=== PATIENT | female | born 1980 | race Caucasian/White ===

== ENCOUNTER → 2017-11-18 | Outpatient (CLI) | payer BC ==
--- NOTE | 2017-11-21 09:20 | MM ---
Reason for exam: clinical finding. Last mammogram was performed 3 years and 9 months ago. History: Took hormonal contraceptives for 11 years. Physical Findings: Nurse did not find any significant physical abnormalities on exam. MG 3D Diag Mammo W/Cad LT Spot compression CC, spot compression MLO, and LM view(s) were taken of the left breast. Prior study comparison: February 26, 2014, right breast MG diagnostic mammo RT w CAD. The breast tissue is heterogeneously dense. This may lower the sensitivity of mammography. There is an upper outer quadrant middle depth focal asymmetry without sonographic correlation on spot compression views, this resolves and appears as fibroglandular tissue. These results were verbally communicated with the patient and result sheet given to the patient on 11/18/17. ASSESSMENT: Negative, BI-RAD 1 RECOMMENDATION: Routine screening mammogram of both breasts at age 40. (or sooner in clinically indicated)
--- NOTE | 2017-11-21 09:21 | USB ---
Reason for exam: clinical finding. History: Took hormonal contraceptives for 11 years. US Breast LT Left complete breast ultrasound includes all four quadrants, the retroareolar region and axilla. Finding demonstrates a 0.2 x 0.2 x 0.2cm oval lesion too small to characterize at 7 o'clock. This may relate to fibroglandular tissue with a central island of fat. These results were verbally communicated with the patient and result sheet given to the patient on 11/18/17. ASSESSMENT: Probably benign, BI-RAD 3 RECOMMENDATION: Ultrasound of the left breast in 6 months.
== END | disposition home or self-care (01) ==
LOC: RADMAMWWP 13:36
PROVIDERS: ATTEND Internal Medicine
DX: N63.24 Unspecified lump in the left breast, lower inner quadrant (principal)
CPT/HCPCS: 77061; 77065

== ENCOUNTER → 2018-02-02 | Outpatient (CLI) | payer BC ==
--- NOTE | 2018-02-02 19:12 | XR ---
EXAMINATION TYPE: XR KUB DATE OF EXAM: 02/02/2018 6:51 PM CLINICAL HISTORY: Urinary tract infection TECHNIQUE: Single supine KUB image of the abdomen is obtained. COMPARISON: 11/24/2012 FINDINGS: Bowel gas pattern is normal. There is no sign of intestinal obstruction or pneumoperitoneum fecal pattern is normal. Bony structures are intact. IMPRESSION: Nonacute abdomen. No change.
== END | disposition home or self-care (01) ==
LOC: RADXRMAIN 18:35
PROVIDERS: ATTEND Internal Medicine
DX: R10.823 Right lower quadrant rebound abdominal tenderness (principal)
CPT/HCPCS: 74018

== ENCOUNTER → 2018-02-13 | Outpatient (CLI) | payer BC, OTHER ==
--- NOTE | 2018-02-13 10:35 | XR ---
EXAM TYPE: LUMBAR SPINE X RAY SERIES COMPARISON: NONE HISTORY: Pain TECHNIQUE: 4 views are submitted. FINDINGS: Alignment is anatomic. The pedicles are intact. The transverse processes are intact. There is no s pondylolysis or spondylolisthesis. Sclerosis involving the SI joint suggest sacroiliitis. Facet arth ropathy involving the mid and lower lumbar spine. IMPRESSION: 1. Multilevel facet arthropathy. 2. Correlate for sacroiliitis.
--- NOTE | 2018-02-13 10:37 | XR ---
EXAMINATION TYPE: XR thoracic spine complete DATE OF EXAM: 02/13/2018 COMPARISON: NONE HISTORY: Pain Alignment is anatomic. There is no compression deformities. Hypertrophic and degenerative change spi ne. IMPRESSION: 1. Multilevel degenerative disc disease.
== END | disposition home or self-care (01) ==
LOC: RADXRMAIN 10:03
PROVIDERS: ATTEND Internal Medicine
DX: M46.96 Unspecified inflammatory spondylopathy, lumbar region (principal); M51.34 Other intervertebral disc degeneration, thoracic region
CPT/HCPCS: 72072; 72100

== ENCOUNTER → 2018-04-12 | Outpatient (CLI) | payer OTHER ==
--- NOTE | 2018-04-13 06:31 | MR ---
EXAMINATION TYPE: MR sacroiliac joints wo/w con DATE OF EXAM: 04/12/2018 COMPARISON: Lumbar spine x-ray February 13, 2018. HISTORY: Frank hip pain per patient, inflammation of sacroilitis per order. CONTRAST: Standard multiplanar, multisequence MRI departmental protocol utilizing 7.5 mL intravenous Gadavist g adolinium contrast. FINDINGS: The sacroiliac joints appear symmetric and felt within normal limits. No suspicious adjacen t osseous edema or enhancement is identified bilaterally. Sacral alar maintained. Visualized portion of iliac bones shows no suspicious enhancement or edema. Visualized portion of pelvis shows no concerning pelvic fluid collection or adenopathy. No suspicious enhancing mass is seen. IMPRESSION: No MRI evidence for active or acute sacroiliitis.
== END | disposition home or self-care (01) ==
LOC: RADMRIMAIN 18:39
PROVIDERS: ATTEND Internal Medicine Rheumatology
DX: M46.1 Sacroiliitis, not elsewhere classified (principal)
CPT/HCPCS: 82565; 72197; 36415; A9581

== ENCOUNTER 2018-10-21 20:49 | Emergency (ER) | payer BC, OTHER ==
[2018-10-21 21:25] VITALS: BP 137/95; PULSE 89; RESP 20; TEMP 98.2
[2018-10-21] MEDS ORDERED: FAMOTIDINE 20 MG TAB PO STA (21:35)
[2018-10-21] MEDS ORDERED: diphenhydrAMINE 50 MG CAP PO STA (21:35)
[2018-10-21] MEDS ORDERED: predniSONE 50 MG TAB PO STA (21:35)
--- NOTE | 2018-10-21 21:36 | ED ---
Skin/Abscess/FB HPI - General Source: patient Mode of arrival: ambulatory Limitations: no limitations <Isaura Kitchen - Last Filed: 10/22/18 03:29> <Vale Molina - Last Filed: 10/23/18 03:04> - General Chief complaint: Skin/Abscess/Foreign Body Stated complaint: Fever/rash Time Seen by Provider: 10/21/18 21:29 - History of Present Illness Initial comments: 38-year-old female patient presents to the emergency department today for evaluation of rash and subjective fever. Patient states that she noticed rash to her upper thighs yesterday. Patient states rash is itchy. Patient states that today she started to feel unwell and chilled like she had a fever. She has not taken any antipyretic medication today. Patient states the rash started to move over her whole body. States that she continues to have itching but has not taking any Benadryl. She denies any exposure to new substances including food, medications, soaps, lotions, detergents, or creams. Patient is currently taking Macrobid for urinary tract infection she has had this medication in the past numerous times. Patient denies any nausea, vomiting, abdominal pain, shortness of breath, lip swelling, tongue or tongue swelling. She denies any cough, nasal congestion, or sore throat. Patient denies any recent chest pain, diarrhea, constipation, back pain, numbness, tingling, dizziness, weakness, headache, visual changes, or any other complaints. (Isaura Kitchen) - Related Data Home Medications Medication Instructions Recorded Confirmed Levothyroxine Sodium [Synthroid] 112 mcg PO DAILY 12/27/15 10/21/18 Nadolol [Corgard] 20 mg PO DAILY 10/21/18 10/21/18 Previous Rx's Medication Instructions Recorded Famotidine [Pepcid] 20 mg PO DAILY #3 tablet 10/21/18 predniSONE 50 mg PO DAILY #3 tab 10/21/18 Allergies Allergy/AdvReac Type Severity Reaction Status Date / Time No Known Allergies Allergy Verified 04/08/16 15:43 Review of Systems ROS Other: All systems not noted in ROS Statement are negative. <Isaura Kitchen - Last Filed: 10/22/18 03:29> ROS Other: All systems not noted in ROS Statement are negative. <Vale Molina - Last Filed: 10/23/18 03:04> ROS Statement: Those systems with pertinent positive or pertinent negative responses have been documented in the HPI. Past Medical History Past Medical History: Hypertension, Thyroid Disorder, Vascular Disorder Additional Past Medical History / Comment(s): hx. of epilepsy as a child. See Dr. Espinal. H&P. Psoriatic arthritis. History of Any Multi-Drug Resistant Organisms: None Reported Past Surgical History: Section, Tubal Ligation Additional Past Surgical History / Comment(s): See Dr. Espinal H&P. Past Anesthesia/Blood Transfusion Reactions: No Reported Reaction Past Psychological History: No Psychological Hx Reported Smoking Status: Never smoker - Past Family History Mother Family Medical History: No Reported History <Isaura Kitchen M - Last Filed: 10/22/18 03:29> General Exam Limitations: no limitations General appearance: alert, in no apparent distress, other (This is a well- developed, well-nourished adult female patient in no acute distress. Vital signs upon presentation are temperature 98.2F, pulse 89, respirations 20, blood pressure 137/95, pulse ox 96% on room air.) Eye exam: Present: normal appearance, PERRL, EOMI. Absent: scleral icterus, conjunctival injection, periorbital swelling ENT exam: Present: normal exam, normal oropharynx, mucous membranes moist Respiratory exam: Present: normal lung sounds bilaterally. Absent: respiratory distress, wheezes, rales, rhonchi, stridor Cardiovascular Exam: Present: regular rate, normal rhythm, normal heart sounds. Absent: systolic murmur, diastolic murmur, rubs, gallop, clicks Back exam: Present: normal inspection. Absent: CVA tenderness (R), CVA tenderness (L) Neurological exam: Present: alert, oriented X3, CN II-XII intact Psychiatric exam: Present: normal affect, normal mood Skin exam: Present: warm, dry, intact, normal color, rash (Patient has erythematous rash noted to the upper thighs and trunk. Consistent with urticaria. Lesions are non-petechial, nonvesicular, no drainage.) <Isaura Kitchen M - Last Filed: 10/22/18 03:29> Course Vital Signs 10/21/18 21:22 Temperature 98.2 F Pulse Rate 89 Respiratory 20 Rate Blood Pressure 137/95 O2 Sat by Pulse 96 Oximetry Medical Decision Making <Isaura Kitchen - Last Filed: 10/22/18 03:29> <Vale Molina - Last Filed: 10/23/18 03:04> - Medical Decision Making 38-year-old female patient presented to the emergency department today for evaluation of fever and rash. Physical examination does reveal urticarial type rash noted over the trunk and legs. Patient is breathing without difficulty exhibits no lip or tongue swelling. Patient does report subjective fevers but is afebrile here in the department. She has not taken any antipyretic medications. She will be treated for urticaria with prednisone and Pepcid. She'll be given Benadryl here and instructed to continue taking this every 6 hours as needed. She is instructed to follow-up with her primary care physician for recheck in 1-2 days. Return parameters were discussed in detail. She verbalizes understanding and agrees this plan. (Isaura Kitchen) I was available for consultation in the emergency department. The history and physical exam were done by the Midlevel Provider. Medical decision making was done by the Midlevel Provider. The Midlevel Provider did not contact me for this patient's care. I was not directly involved in this patient's care. (Vale Molina) Disposition Is patient prescribed a controlled substance at d/c from ED?: No Time of Disposition: 21:36 <Isaura Kitchen - Last Filed: 10/22/18 03:29> <Vale Molina - Last Filed: 10/23/18 03:04> Clinical Impression: Urticaria Disposition: HOME SELF-CARE Condition: Good Instructions (If sedation given, give patient instructions): Acute Rash (ED) Additional Instructions: Take medications as directed. Follow up with her primary care physician for recheck in 1-2 days. Return to the emergency department immediately for any new, worsening, or concerning symptoms. Prescriptions: Famotidine [Pepcid] 20 mg PO DAILY #3 tablet predniSONE 50 mg PO DAILY #3 tab Referrals: Nonstaff,Physician [Primary Care Provider] - 1-2 days
== END 2018-10-21 22:07 | disposition home or self-care (01) ==
LOC: EC 20:49
DX: L50.9 Urticaria, unspecified (principal); N39.0 Urinary tract infection, site not specified; I10 Essential (primary) hypertension; E07.9 Disorder of thyroid, unspecified; Z79.890 Hormone replacement therapy; Z79.899 Other long term (current) drug therapy
CPT/HCPCS: 99282; J7512

== ENCOUNTER → 2019-06-05 | Outpatient (CLI) | payer BC ==
--- NOTE | 2019-06-05 11:26 | XR ---
EXAMINATION TYPE: XR chest 2V DATE OF EXAM: 06/05/2019 COMPARISON: 12/27/2015 TECHNIQUE: PA and lateral views submitted. HISTORY: Cough FINDINGS: The lungs are clear and there is no pneumothorax, pleural effusion, or focal pneumonia. Hypertrophi c change of the spine. IMPRESSION: 1. No acute process.
== END | disposition home or self-care (01) ==
LOC: RADXRMAIN 11:08
PROVIDERS: ATTEND Family Medicine
DX: J20.8 Acute bronchitis due to other specified organisms (principal); J18.9 Pneumonia, unspecified organism
CPT/HCPCS: 71046

== ENCOUNTER → 2019-09-05 | Outpatient (CLI) | payer BC ==
--- NOTE | 2019-09-05 08:01 | MR ---
EXAMINATION TYPE: MR sacroiliac joints wo con DATE OF EXAM: 09/05/2019 COMPARISON: MRI sacroiliac joints April 12, 2018 HISTORY: Psoriatic arthritis; poss sacroiliitis, pain in pelvis and both hips Standard multiplanar, multisequence MRI departmental protocol Multiplanar, multisequence images of the pelvis were acquired. Imaging focuses on the bilateral sacro iliac joints. FINDINGS: Sacroiliac joints are symmetric and felt within normal limits. No suspicious periarticular osseous edema. No significant spurring. No significant change from prior. 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 Multiple nabothian cysts in the cervix are present. Partially lobulate d right anterior uterus on the most superior images suggesting probable fibroid. IMPRESSION: No MRI evidence for active or acute sacroiliitis. No significant change from prior MRI.
== END | disposition home or self-care (01) ==
LOC: RADMRIMAIN 06:56
PROVIDERS: ATTEND Internal Medicine Rheumatology
DX: M46.1 Sacroiliitis, not elsewhere classified (principal); L40.50 Arthropathic psoriasis, unspecified
CPT/HCPCS: 72195

== ENCOUNTER → 2019-12-10 | Outpatient (CLI) | payer BC ==
--- NOTE | 2019-12-11 08:40 | US ---
EXAMINATION TYPE: US pelvic complete DATE OF EXAM: 12/10/2019 COMPARISON: MRI 09/05/2019 CLINICAL HISTORY: D25.9 fibrouterus. Possible fibroid visualized on MRI TECHNIQUE: Transabdominal (TA). Transabdominal sonographic images of the pelvis were acquired. Date of LMP: 11/21/2019 EXAM MEASUREMENTS: Uterus: 11.5 x 4.4 x 6.6 cm Endometrial Stripe: 1.7 cm Right Ovary: 3.5 x 3.4 x 1.9 cm Left Ovary: 2.4 x 2.4 x 2.0 cm 1. Uterus: Anteverted Enlarged, heterogeneous with possible fibroid anterior= 1.9 x 1.3 x 1.8 cm 2. Endometrium: Thickened 3. Right Ovary: wnl 4. Left Ovary: wnl 5. Bilateral Adnexa: wnl 6. Posterior cul-de-sac: wnl IMPRESSION: 1. Enlarged heterogenous uterus with solitary possible uterine leiomyoma measuring 1.9 cm and appears intramural. 2. Endometrial thickening is appreciated that may relate to endometrial hyperplasia, endometrial poly p, or endometrial mass. Further evaluation with sonohysterogram or direct visualization recommended.
== END | disposition home or self-care (01) ==
LOC: RADUSWWP 15:23
PROVIDERS: ATTEND Family Medicine
DX: N85.2 Hypertrophy of uterus (principal); R93.89 Abnormal findings on diagnostic imaging of other specified body structures; D25.9 Leiomyoma of uterus, unspecified; Z88.1 Allergy status to other antibiotic agents
CPT/HCPCS: 76856

== ENCOUNTER → 2020-01-16 | Outpatient (CLI) | payer BC ==
--- NOTE | 2020-01-17 07:24 | US ---
EXAMINATION TYPE: US kidneys/renal and bladder DATE OF EXAM: 01/16/2020 COMPARISON: CT 2012 CLINICAL HISTORY: N39.0 Urinary tract infection, site not specified. Frequent urinary tract infection s, hematuria EXAM MEASUREMENTS: Right Kidney: 9.7 x 4.5 x 5.4 cm Left Kidney: 11.0 x 4.8 x 4.9 cm Right Kidney: no hydronephrosis or masses seen Left Kidney: no hydronephrosis or masses seen Bladder: not fully distended, appears wnl as seen Bilateral Jets seen: yes Liver shows a coarse echotexture which may be due to hepatic steatosis. Cortical measured differentia tion within the kidneys is maintained. IMPRESSION: No evident hydronephrosis
== END | disposition home or self-care (01) ==
LOC: RADUSWWP 16:18
PROVIDERS: ATTEND Urology
DX: N39.0 Urinary tract infection, site not specified (principal)
CPT/HCPCS: 76770

== ENCOUNTER 2021-05-25 15:00 | Inpatient (IN) | payer BC, OTHER ==
[2021-05-25] MEDS ORDERED: ACETAMINOPHEN TAB 325 MG TAB PO STA (20:01)
[2021-05-25] MEDS ORDERED: DEXAMETHASONE SOD PHOSPHATE 10 MG/ML 1 ML VIAL IVP STA (20:19)
--- NOTE | 2021-05-25 20:23 | XR ---
EXAMINATION TYPE: XR chest 2V DATE OF EXAM: 05/25/2021 COMPARISON: 06/05/2019 HISTORY: Cough and congestion TECHNIQUE: FINDINGS: There is extensive interstitial pulmonary infiltrates. Heart size is normal. There is no pl eural effusion. Pulmonary vascularity difficult to evaluate because of extensive pneumonia. Bony thor ax is intact. IMPRESSION: Extensive bilateral pneumonia is a change compared to old exam.
[2021-05-25 20:56] LABS: Basophils # (A) 0.1 k/uL (0-0.2); Basophils % (A) 1 %; Eosinophils % (A) 0 %; HCT 44.1 % (34.0-46.0); HGB 14.9 gm/dL (11.4-16.0); Lymphocytes % (A) 15 %; MCH 31.2 pg (25.0-35.0); MCHC 33.8 g/dL (31.0-37.0); MCV 92.3 fL (80.0-100.0); Mean Platelet Volume 7.9; Monocytes # (A) 0.4 k/uL (0-1.0); Monocytes % (A) 5 %; Neutrophils # (A) 4.9 k/uL (1.3-7.7); Neutrophils % (A) 75 %; Platelet Count 241 k/uL (150-450); RBC 4.77 m/uL (3.80-5.40); RDW 12.2 % (11.5-15.5); WBC 6.5 k/uL (3.8-10.6)
[2021-05-25 21:07] LABS: ALT 57 U/L (4-34); AST 97 U/L (14-36); African American GFR (CKD) >90 (>60 ml/min/1.73 sqM); Albumin 3.5 g/dL (3.5-5.0); Alkaline Phosphatase 69 U/L (38-126); Anion Gap 8 mmol/L; Blood Urea Nitrogen 9 mg/dL (7-17); Calcium 8.1 mg/dL (8.4-10.2); Carbon Dioxide 27 mmol/L (22-30); Chloride 97 mmol/L (98-107); Glucose 107 mg/dL (74-99); Non-African American GFR(CKD) >90 (>60 ml/min/1.73 sqM); Potassium 4.1 mmol/L (3.5-5.1); Sodium 132 mmol/L (137-145); Total Bilirubin 0.5 mg/dL (0.2-1.3); Total Protein 6.7 g/dL (6.3-8.2)
[2021-05-25 21:10] LABS: Partial Thromboplastin Time 26.1 sec (22.0-30.0); Prothrombin Time 10.5 sec (9.0-12.0)
[2021-05-25 21:24] LABS: C Reactive Protein 20.8 mg/dL (<1.0)
--- NOTE | 2021-05-25 21:24 | ED ---
URI HPI - General Chief Complaint: Upper Respiratory Infection Stated Complaint: Covid Positive, UMESH, Cough Time Seen by Provider: 05/25/21 20:01 Source: patient, RN notes reviewed Mode of arrival: ambulatory Limitations: no limitations - History of Present Illness Initial Comments: A she is a 40-year-old female that presents to the emergency room complaining of Covid infection with worsening symptoms over the past several days. Patient notes she is short of breath, has a fever and very fatigue. Patient was in minimal distress while laying in bed she did appear to be uncomfortable. Patient notes she is agreeable with your monoclonal antibodies or hospital admission. Patient denied any other issues or complaints. She denied any chest pain headache nausea vomiting diarrhea constipation - Related Data Home Medications Medication Instructions Recorded Confirmed nadoloL [Corgard] 20 mg PO DAILY 10/21/18 05/25/21 Albuterol Inhaler [Ventolin Hfa 2 puff INHALATION RT-QID PRN 05/25/21 05/25/21 Inhaler] Etanercept [Enbrel Mini] 50 mg SQ SA 05/25/21 05/25/21 Levothyroxine Sodium [Euthyrox] 100 mcg PO DAILY 05/25/21 05/25/21 Naproxen 375 mg PO BID PRN 05/25/21 05/25/21 Allergies Allergy/AdvReac Type Severity Reaction Status Date / Time nitrofurantoin Allergy Dyspnea Verified 05/25/21 22:34 [From Macrobid] Review of Systems ROS Statement: Those systems with pertinent positive or pertinent negative responses have been documented in the HPI. ROS Other: All systems not noted in ROS Statement are negative. Past Medical History Past Medical History: Hypertension, Thyroid Disorder, Vascular Disorder Additional Past Medical History / Comment(s): hx. of epilepsy as a child. See Dr. Mercado's. H&P. Psoriatic arthritis. History of Any Multi-Drug Resistant Organisms: ESBL Date of last positivie culture/infection: 06/19/19 ESBL E.coli MDRO Source:: Urine Past Surgical History: Section, Tubal Ligation Additional Past Surgical History / Comment(s): See Dr. Mercado's H&P., D&C Past Anesthesia/Blood Transfusion Reactions: No Reported Reaction Past Psychological History: No Psychological Hx Reported Smoking Status: Never smoker Past Alcohol Use History: None Reported Past Drug Use History: None Reported - Past Family History Mother Family Medical History: No Reported History General Exam Limitations: no limitations General appearance: alert, in no apparent distress Head exam: Present: atraumatic, normocephalic, normal inspection Eye exam: Present: normal appearance, PERRL, EOMI. Absent: scleral icterus, conjunctival injection, periorbital swelling ENT exam: Present: normal exam, mucous membranes moist Neck exam: Present: normal inspection Respiratory exam: Present: normal lung sounds bilaterally. Absent: respiratory distress, wheezes, rales, rhonchi, stridor Cardiovascular Exam: Present: regular rate, normal rhythm, normal heart sounds. Absent: systolic murmur, diastolic murmur, rubs, gallop, clicks GI/Abdominal exam: Present: soft, normal bowel sounds. Absent: distended, tenderness, guarding, rebound, rigid Extremities exam: Present: normal inspection, full ROM, normal capillary refill. Absent: tenderness, pedal edema, joint swelling, calf tenderness Neurological exam: Present: alert, oriented X3 Psychiatric exam: Present: normal affect, normal mood Skin exam: Present: warm, dry, intact, normal color. Absent: rash Course Vital Signs 05/25/21 05/25/21 05/25/21 19:26 21:27 22:20 Temperature 99.8 F H 99.4 F Pulse Rate 107 H 96 Pulse Rate [ Left Supine] Respiratory 26 H 20 18 Rate Blood Pressure 97/64 101/62 O2 Sat by Pulse 90 L 90 L Oximetry 05/26/21 05/26/21 00:01 01:47 Temperature 98.7 F 98.3 F Pulse Rate 89 Pulse Rate [ 88 Left Supine] Respiratory 20 18 Rate Blood Pressure 110/71 O2 Sat by Pulse 95 95 Oximetry Medical Decision Making - Medical Decision Making 40-year-old female Covid-positive increased shortness of breath, fatigue, fever. Labs, 650 mg of Tylenol, 10 mg of Decadron, EKG, chest x-ray ordered. Labs: Slightly elevated liver enzymes, rest unremarkable. Chest x-ray shows extensive bilateral pneumonia. Case discussed with Dr. Salgado, patient will be admitted. Dr. Noriega was consulted and will accept the admit. - Lab Data Result diagrams: 05/25/21 20:48 05/25/21 20:48 Lab Results 05/25/21 05/25/2105/25/21 Range/Units 20:48 20:48 20:48 WBC 6.5 (3.8-10.6) k/uL RBC 4.77 (3.80-5.40) m/uL Hgb 14.9 (11.4-16.0) gm/dL Hct 44.1 (34.0-46.0) % MCV 92.3 (80.0-100.0) fL MCH 31.2 (25.0-35.0) pg MCHC 33.8 (31.0-37.0) g/dL RDW 12.2 (11.5-15.5) % Plt Count 241 (150-450) k/uL MPV 7.9 Neutrophils % 75 % Lymphocytes % 15 % Monocytes % 5 % Eosinophils % 0 % Basophils % 1 % Neutrophils # 4.9 (1.3-7.7) k/uL Lymphocytes # 1.0 (1.0-4.8) k/uL Monocytes # 0.4 (0-1.0) k/uL Eosinophils # 0.0 (0-0.7) k/uL Basophils # 0.1 (0-0.2) k/uL PT 10.5 (9.0-12.0) sec INR 1.0 (<1.2) APTT 26.1 (22.0-30.0) sec Sodium 132 L (137-145) mmol/L Potassium 4.1 (3.5-5.1) mmol/L Chloride 97 L (98-107) mmol/L Carbon Dioxide 27 (22-30) mmol/L Anion Gap 8 mmol/L BUN 9 (7-17) mg/dL Creatinine 0.72 (0.52-1.04) mg/dL Est GFR (CKD-EPI)AfAm >90 (>60 ml/min/1.73 sqM) Est GFR (CKD-EPI)NonAf >90 (>60 ml/min/1.73 sqM) Glucose 107 H (74-99) mg/dL Calcium 8.1 L (8.4-10.2) mg/dL Total Bilirubin 0.5 (0.2-1.3) mg/dL AST 97 H (14-36) U/L ALT 57 H (4-34) U/L Alkaline Phosphatase 69 (38-126) U/L C-Reactive Protein 20.8 H (<1.0) mg/dL Total Protein 6.7 (6.3-8.2) g/dL Albumin 3.5 (3.5-5.0) g/dL - EKG Data -: EKG Interpreted by Me EKG shows normal: sinus rhythm Rate: tachycardia EKG Comments: Ventricular rate 102 bpm, HI interval 116 ms, QRS duration 70 ms, QTC 479 ms, PRT axes 51/74/62, sinus tachycardia, nonspecific ST abnormality, abnormal ECG. - Radiology Data Radiology results: report reviewed, image reviewed Chest x-ray: Extensive bilateral pneumonia is a change compared to old exam. Disposition Clinical Impression: Pneumonia due to COVID-19 virus, Hypoxia Disposition: ADMITTED IP TO THIS HOSP Is patient prescribed a controlled substance at d/c from ED?: No Time of Disposition: 02:51
[2021-05-25] MEDS ORDERED: ACETAMINOPHEN TAB 325 MG TAB PO PRN (21:50)
[2021-05-25] MEDS ORDERED: NALOXONE 0.4 MG/ML 1 ML VIAL IV PRN (21:50)
[2021-05-25] MEDS: SODIUM CHLORIDE 0.9% 1,000 ML IV SCH (22:02)
[2021-05-26] MEDS: ZINC SULFATE 220 MG CAP PO SCH (08:32)
[2021-05-26] MEDS: ASCORBIC ACID 500 MG TAB PO SCH ×2 (08:32→21:05)
[2021-05-26] MEDS: CHOLECALCIFEROL 25 MCG (1000 IU) TABLET PO SCH (08:32)
[2021-05-26] MEDS: DEXAMETHASONE SOD PHOSPHATE 10 MG/ML 1 ML VIAL IVP SCH (08:32)
[2021-05-26] MEDS: SODIUM CHLORIDE 0.9% 1,000 ML IV SCH ×3 (08:34→22:11)
[2021-05-26] MEDS: ENOXAPARIN 40 MG/0.4 ML SYRINGE SQ SCH (08:34)
[2021-05-26] MEDS ORDERED: DEXAMETHASONE SOD PHOSPHATE 10 MG/ML 1 ML VIAL IVP SCH (09:00)
--- NOTE | 2021-05-26 10:56 | P.CNPUL ---
History of Present Illness Consult date: 05/26/21 Requesting physician: Taqueria Noriega Reason for consult: dyspnea, cough, hypoxemia, pneumonia, abnormal CXR/CT Chief complaint: Shortness of breath. History of present illness: Pulmonary consultation dated 05/26/2021. 40-year-old female, who presents to the emergency department, on May 25, complaining of shortness of breath and cough. The patient has been having symptoms now for about 10 days or so. In addition, the patient had body aches, muscle aches, and even her. Her symptoms progress, and because of that, she came in to be evaluated. The patient is not vaccinated. Currently, in the emergency department, she is on 2 L nasal cannula. She's not receiving any IV fluids. Based on her symptomatology, and how long she's been sick, she is a candidate for Lovenox, Decadron, vitamin C, D3, and zinc. She is not a candidate for REM. She has a history of hypertension, hypothyroidism, epilepsy, and psoriatic arthritis. She's also had extended spectrum beta-lactamase producing E. coli urinary tract infection in the past. CBC is completely normal including white blood count, hemoglobin, hematocrit, and platelet count. D- dimer was 0.55. Sodium 132, potassium 4.1, chlorides 97, CO2 27, anion gap 8, BUN 9, and creatinine 0.72. LDH is 1652. C-reactive protein is 20.8. Pro- calcitonin level was 0.19. Chest x-ray shows diffuse bilateral pulmonary infiltrates, consistent with coronavirus pneumonia. Review of Systems REVIEW OF SYSTEMS: CONSTITUTIONAL: Fever, chills, muscle aches, body aches. NEUROLOGIC: [ Negative.] HEENT: [ Negative.] CARDIAC: [Negative.] PULMONARY: Shortness of breath, chest congestion, cough. GI: [Negative.] : [Negative.] RHEUMATOLOGIC: [ Negative.] IMMUNOLOGIC: [ Negative.] ENDOCRINE: [Negative. ] DERMATOLOGIC: [Negative.] Past Medical History Past Medical History: Hypertension, Thyroid Disorder, Vascular Disorder Additional Past Medical History / Comment(s): hx. of epilepsy as a child. See Dr. Mercado's. H&P. Psoriatic arthritis. History of Any Multi-Drug Resistant Organisms: ESBL Date of last positivie culture/infection: 06/19/19 ESBL E.coli MDRO Source:: Urine Past Surgical History: Section, Tubal Ligation Additional Past Surgical History / Comment(s): See Dr. Mercado's H&P., D&C Past Anesthesia/Blood Transfusion Reactions: No Reported Reaction Past Psychological History: No Psychological Hx Reported Smoking Status: Never smoker Past Alcohol Use History: None Reported Past Drug Use History: None Reported - Past Family History Mother Family Medical History: No Reported History Medications and Allergies Home Medications Medication Instructions Recorded Confirmed Type nadoloL [Corgard] 20 mg PO DAILY 10/21/18 05/25/21 History Albuterol Inhaler [Ventolin Hfa 2 puff INHALATION RT-QID PRN 05/25/21 05/25/21 History Inhaler] Etanercept [Enbrel Mini] 50 mg SQ SA 05/25/21 05/25/21 History Levothyroxine Sodium [Euthyrox] 100 mcg PO DAILY 05/25/21 05/25/21 History Naproxen 375 mg PO BID PRN 05/25/21 05/25/21 History Allergies Allergy/AdvReac Type Severity Reaction Status Date / Time nitrofurantoin Allergy Dyspnea Verified 05/25/21 22:34 [From Macrobid] Physical Exam Osteopathic Statement: *. No significant issues noted on an osteopathic structural exam other than those noted in the History and Physical/Consult. Vitals: Vital Signs Temp Pulse Pulse Resp BP Pulse Ox 05/26/21 06:09 97.4 F L 84 18 121/83 94 L 05/26/21 04:24 81 16 108/72 95 05/26/21 01:47 98.3 F 89 18 110/71 95 05/26/21 00:01 98.7 F 88 20 95 05/25/21 22:20 99.4 F 96 18 101/62 90 L 05/25/21 21:27 20 05/25/21 19:26 99.8 F H 107 H 26 H 97/64 90 L Intake and Output 05/25/21 05/26/21 05/26/21 22:59 06:59 14:59 Other: Weight 88.904 kg 88.904 kg No acute distress, oriented 3. Nasal O2 in place at 2 L. HEENT examination is grossly unremarkable. Neck supple. Full range of motion. No adenopathy thyromegaly or neck vein distention. Cardiovascular examination reveals regular rhythm rate. S1-S2 normal. No S3 or S4. No discernible murmur noted. Heart sounds are distant. Heart rate 84 bpm. Lungs reveal coarse bilateral rhonchi. The patient coughs with deep inspiration. No wheezes or crackles. Breath sounds are equal bilaterally. 2 L saturation 94%. Abdomen soft bowel sounds are heard. No masses or tenderness. Extremities are intact. No cyanosis clubbing or edema. Skin is without rash or lesion. Neurologic examination is brief but nonfocal. Results - Laboratory Findings CBC and BMP: 05/25/21 20:48 05/25/21 20:48 PT/INR, D-dimer PT 10.5 sec (9.0-12.0) 05/25/21 20:48 INR 1.0 (<1.2) 05/25/21 20:48 D-Dimer 0.55 mg/L FEU (<0.60) 05/26/21 09:50 Abnormal lab findings: Abnormal Labs 05/25/21 05/25/21 05/26/21 20:48 20:48 09:50 Sodium 132 L Chloride 97 L Glucose 107 H Calcium 8.1 L AST 97 H ALT 57 H Lactate Dehydrogenase 1652 H C-Reactive Protein 20.8 H Procalcitonin 0.19 H - Diagnostic Findings Chest x-ray: image reviewed Assessment and Plan Assessment: Acute hypoxemic respiratory failure secondary to coronavirus associated pneumonia. History of hypothyroidism. History of hypertension. History of psoriatic arthritis. Prior history of ESBL E. coli UTI. History of epilepsy as a child. Plan: Plan dated 05/26/2021. The patient is not a candidate for REM. She's been sick for more than 7 days. The patient is not vaccinated. The patient is a candidate for Lovenox, Decadron, and vitamins. Should get Lovenox 40 mg subcu daily, and Decadron 6 mg a day. In addition, she'll get vitamin C, vitamin D3, and zinc, we will continue to follow. Her chest x-ray looks much worse and she looks clinically. I'm hopeful that she won't deteriorate. We will continue to follow make recommendations where appropriate. Time with Patient: Greater than 30
--- NOTE | 2021-05-26 15:08 | P.HPIM ---
History of Present Illness H&P Date: 05/26/21 HISTORY OF PRESENT ILLNESS This is a 40-year-old female patient of Dr. Branham and Dr. Mercado with past medical history of pots, psoriatic arthritis in hips and spine on Enbrel, hypothyroidism. Patient complains of shortness of breath, fever and chills that started around May 16. She denies having any abdominal pain, diarrhea, nausea or vomiting, no blood in her stools. No lower extremities edema. She denies any headache or dizziness. Patient came into [facility] emergency center for evaluation. She was afebrile, heart rate 107, respiratory rate 26, blood pressure 97/64, pulse ox 90% on room air. CBC was unremarkable. D-dimer 0.55. Sodium 132, potassium 4.1, chloride 97, CO2 27, BUN 90 creatinine 0.72. Calcium 8.1. Total bilirubin 0.5, AST 97, ALT 57, alkaline phosphatase 69. LDH 1652. C-reactive protein 20.8. Pro-calcitonin 0.19. Chest x-ray reveals extensive bilateral pneumonia. Patient was started on dexamethasone, Lovenox and vitamin supplements, see bipolar medicine. Patient is in the emergency center waiting for bed on the [facility] floor. REVIEW OF SYSTEMS Constitutional: Reports fever, Reports chills, no night sweats. No weight change. Reports weakness, Reports fatigue no lethargy. No daytime sleepiness. EENT: No headache. No blurred vision or double vision, no loss of vision. No loss of Hearing, no ringing in the ears, no dizziness. No nasal drainage or congestion. No epistaxis. No sore throat. Lungs: Reports shortness of breath, Reports cough, no sputum production. No wheezing. Cardiovascular: No chest pain, no lower extremity edema. No palpitations. No paroxysmal nocturnal dyspnea. No orthopnea. No lightheadedness or dizziness. No syncopal episodes. Abdominal: No abdominal pain. No nausea, vomiting. No diarrhea. No constipation. No bloody or tarry stools. No loss of appetite. Genitourinary: No dysuria, increased frequency, urgency. No urinary retention. Musculoskeletal: No myalgias. No muscle weakness, no gait dysfunction, no frequent falls. No back pain. No neck pain. Integumentary: No wounds, no lesions. No rash or pruritus. No unusual b ruising. No change in hair or nails. Neurologic: No aphasia. No facial droop. No change in mentation. No head injury. No headache. No paralysis. No paresthesia. Psychiatric: No depression. No anxiety. No mood swings. Endocrine: No abnormal blood sugars. No weight change. SOCIAL HISTORY [ ]. FAMILY HISTORY [ ]. PHYSICAL EXAMINATION Gen: This is this is a 40-year-old female. She is resting on the ears stretching appears to be comfortable, no acute respiratory distress is noted. HEENT: Head is atraumatic, normocephalic. Pupils equal, round. Sclerae is anicteric. NECK: Supple. No JVD. No lymphadenopathy. No thyromegaly. LUNGS: Coarse rhonchi bilaterally. No wheezing. No intercostal retractions. HEART: Regular rate and rhythm. No murmur. ABDOMEN: Soft. Bowel sounds are present. No masses. No tenderness. EXTREMITIES: No pedal edema. No calf tenderness. NEUROLOGICAL: Patient is awake, alert and oriented x3. Cranial nerves 2 through 12 are grossly intact. ASSESSMENT AND PLAN 1. COVID 19 pneumonia. Patient has been started on dexamethasone 6 mg IV push daily, Lovenox 40 mg subcu daily, vitamin supplements, albuterol inhaler 2 puffs 4 times daily as needed, Tylenol as needed for fever, pulmonary consult appreciated. 2. History of POTS also Dr. Mercado. 3. Psoriatic arthritis currently on Enbrel. Hold Enbrel. 4. Hypothyroidism. Continue levothyroxine 100 g daily. 5. Hypertension. Continue Corgard 20 mg daily with parameters. 6. GI prophylaxis. Protonix. 7. DVT prophylaxis. Lovenox. Patient will be admitted to the hospital for a minimum of 2 night stay. DISCHARGE PLAN Return home. Impression and plan of care have been directed as dictated by the signing physician. Mica Richard nurse practitioner acting as scribe for signing physician. Past Medical History Past Medical History: Hypertension, Thyroid Disorder, Vascular Disorder Additional Past Medical History / Comment(s): hx. of epilepsy as a child. See Dr. Mercado's. H&P. Psoriatic arthritis. History of Any Multi-Drug Resistant Organisms: ESBL Date of last positivie culture/infection: 06/19/19 ESBL E.coli MDRO Source:: Urine Past Surgical History: Section, Tubal Ligation Additional Past Surgical History / Comment(s): See Dr. Mercado's H&P., D&C Past Anesthesia/Blood Transfusion Reactions: No Reported Reaction Past Psychological History: No Psychological Hx Reported Smoking Status: Never smoker Past Alcohol Use History: None Reported Past Drug Use History: None Reported - Past Family History Mother Family Medical History: No Reported History Medications and Allergies Home Medications Medication Instructions Recorded Confirmed Type nadoloL [Corgard] 20 mg PO DAILY 10/21/18 05/25/21 History Albuterol Inhaler [Ventolin Hfa 2 puff INHALATION RT-QID PRN 05/25/21 05/25/21 History Inhaler] Etanercept [Enbrel Mini] 50 mg SQ SA 05/25/21 05/25/21 History Levothyroxine Sodium [Euthyrox] 100 mcg PO DAILY 05/25/21 05/25/21 History Naproxen 375 mg PO BID PRN 05/25/21 05/25/21 History Allergies Allergy/AdvReac Type Severity Reaction Status Date / Time nitrofurantoin Allergy Dyspnea Verified 05/25/21 22:34 [From Macrobid] Physical Exam Vitals: Vital Signs Temp Pulse Pulse Resp BP Pulse Ox 05/26/21 06:09 97.4 F L 84 18 121/83 94 L 05/26/21 04:24 81 16 108/72 95 05/26/21 01:47 98.3 F 89 18 110/71 95 05/26/21 00:01 98.7 F 88 20 95 05/25/21 22:20 99.4 F 96 18 101/62 90 L 05/25/21 21:27 20 05/25/21 19:26 99.8 F H 107 H 26 H 97/64 90 L Intake and Output 05/25/21 05/26/21 05/26/21 22:59 06:59 14:59 Other: Weight 88.904 kg 88.904 kg Results CBC & Chem 7: 05/25/21 20:48 05/25/21 20:48 Labs: Abnormal Lab Results - Last 24 Hours (Table) 05/25/21 Range/Units 20:48 Sodium 132 L (137-145) mmol/L Chloride 97 L (98-107) mmol/L Glucose 107 H (74-99) mg/dL Calcium 8.1 L (8.4-10.2) mg/dL AST 97 H (14-36) U/L ALT 57 H (4-34) U/L C-Reactive Protein 20.8 H (<1.0) mg/dL Thrombosis Risk Factor Assmnt - Choose All That Apply Each Factor Represents 1 point: Serious lung disease incl. pneumonia (< 1month) Thrombosis Risk Factor Assessment Total Risk Factor Score: 1 Thrombosis Risk Factor Assessment Level: Low Risk
[2021-05-26] MEDS: ALBUTEROL HFA INHALER INHALATION PRN (21:42)
[2021-05-27] MEDS: SODIUM CHLORIDE 0.9% 1,000 ML IV SCH (04:43)
[2021-05-27] MEDS: LEVOTHYROXINE 100 MCG TAB PO SCH (05:58)
[2021-05-27] MEDS: ALBUTEROL HFA INHALER INHALATION PRN ×3 (07:23→16:10)
[2021-05-27] MEDS: CHOLECALCIFEROL 25 MCG (1000 IU) TABLET PO SCH (08:14)
[2021-05-27] MEDS: ZINC SULFATE 220 MG CAP PO SCH (08:14)
[2021-05-27] MEDS: ASCORBIC ACID 500 MG TAB PO SCH ×2 (08:14→19:15)
[2021-05-27] MEDS: DEXAMETHASONE SOD PHOSPHATE 10 MG/ML 1 ML VIAL IVP SCH (08:15)
[2021-05-27] MEDS: ENOXAPARIN 40 MG/0.4 ML SYRINGE SQ SCH (08:15)
[2021-05-27] MEDS: PANTOPRAZOLE 40 MG TABLET PO SCH (08:15)
[2021-05-27 10:00] LABS: C Reactive Protein 7.4 mg/dL (0.00-0.80)
--- NOTE | 2021-05-27 16:12 | P.PN ---
Subjective Progress Note Date: 05/27/21 HISTORY OF PRESENT ILLNESS This is a 40-year-old female patient of Dr. Branham and Dr. Mercado with past medical history of pots, psoriatic arthritis in hips and spine on Enbrel, hy pothyroidism. Patient complains of shortness of breath, fever and chills that started around May 16. She denies having any abdominal pain, diarrhea, nausea or vomiting, no blood in her stools. No lower extremities edema. She denies any headache or dizziness. Patient came into [facility] emergency center for evaluation. She was afebrile, heart rate 107, respiratory rate 26, blood pressure 97/64, pulse ox 90% on room air. CBC was unremarkable. D-dimer 0.55. Sodium 132, potassium 4.1, chloride 97, CO2 27, BUN 90 creatinine 0.72. Calcium 8.1. Total bilirubin 0.5, AST 97, ALT 57, alkaline phosphatase 69. LDH 1652. C-reactive protein 20.8. Pro-calcitonin 0.19. Chest x-ray reveals extensive bilateral pneumonia. Patient was started on dexamethasone, Lovenox and vitamin supplements, see bipolar medicine. Patient is in the emergency center waiting for bed on the [facility] floor. 05/27 patient examined bedside. Continues to have significant shortness of shel[place] th on rest as well as underlying. Vision endorses cough with no phlegm production. She denies any headache, dizziness, swelling in the lower extremity or palpitation. Patient continued to maintain oxygen saturation at 96% on 3 L of oxygen is afebrile pulse 76 respiratory rate 17. Labs are reviewed repeat LDH has improved from 1652-5 ED CRP is improved to 7.4 pro-calcitonin 0.19. D- dimer is normal at 0.59. Continue patient on Decadron, Lovenox, vitamin C, D and sitting. No indication for remdesivir as patient is out of window. IV fluids discontinued today REVIEW OF SYSTEMS Constitutional: Reports fever, Reports chills, no night sweats. No weight change. Reports weakness, Reports fatigue no lethargy. No daytime sleepiness. EENT: No headache. No blurred vision or double vision, no loss of vision. No loss of Hearing, no ringing in the ears, no dizziness. No nasal drainage or congestion. No epistaxis. No sore throat. Lungs: Reports shortness of breath, Reports cough, no sputum production. No wheezing. Cardiovascular: No chest pain, no lower extremity edema. No palpitations. No paroxysmal nocturnal dyspnea. reportsea. No lightheadedness or dizziness. No syncopal episodes. Abdominal: No abdominal pain. No nausea, vomiting. No diarrhea. No constipation. No bloody or tarry stools. No loss of appetite. Genitourinary: No dysuria, increased frequency, urgency. No urinary retention. Musculoskeletal: No myalgias. No muscle weakness, no gait dysfunction, no frequent falls. No back pain. No neck pain. Integumentary: No wounds, no lesions. No rash or pruritus. No unusual bruising. No change in hair or nails. Neurologic: No aphasia. No facial droop. No change in mentation. No head injury. No headache. No paralysis. No paresthesia. Psychiatric: No depression. No anxiety. No mood swings. Endocrine: No abnormal blood sugars. No weight change. PHYSICAL EXAMINATION Gen: This is this is a 40-year-old female. She is resting on the ears stretching appears to be comfortable, no acute respiratory distress is noted. HEENT: Head is atraumatic, normocephalic. Pupils equal, round. Sclerae is anicteric. NECK: Supple. No JVD. No lymphadenopathy. No thyromegaly. LUNGS: Coarse rhonchi bilaterally. No wheezing. No intercostal retractions. HEART: Regular rate and rhythm. No murmur. ABDOMEN: Soft. Bowel sounds are present. No masses. No tenderness. EXTREMITIES: No pedal edema. No calf tenderness. NEUROLOGICAL: Patient is awake, alert and oriented x3. Cranial nerves 2 through 12 are grossly intact. ASSESSMENT AND PLAN 1. COVID 19 pneumonia.Continue on dexamethasone 6 mg IV push daily, Lovenox 40 mg subcu daily, vitamin supplements, albuterol inhaler 2 puffs 4 times daily as needed, Tylenol as needed for fever, pulmonary consult appreciated.Incentive spirometry. Patient recommended to change position every 2 hours and lying prone position as much as possible. 2. History of POTS also Dr. Mercado. 3. Psoriatic arthritis currently on Enbrel. Hold Enbrel. 4. Hypothyroidism. Continue levothyroxine 100 g daily. 5. Hypertension. Continue Corgard 20 mg daily with parameters. 6. GI prophylaxis. Protonix. 7. DVT prophylaxis. Lovenox. Objective - Vital Signs Vital signs: Vital Signs Temp 98.4 F 05/27/21 06:00 Pulse 81 05/27/21 06:00 Resp 17 05/27/21 01:35 BP 120/77 05/27/21 06:00 Pulse Ox 95 05/27/21 06:00 Intake & Output 05/26/21 05/27/21 05/27/21 18:59 06:59 18:59 Intake Total 540 100 Balance 540 100 Intake: Oral 540 100 Other: Voiding Method Toilet # Voids 0 2 - Labs CBC & Chem 7: 05/25/21 20:48 05/25/21 20:48 Labs: Abnormal Lab Results - Last 24 Hours (Table) 05/25/21 05/26/21 Range/Units 20:48 09:50 Lactate Dehydrogenase 1652 H (313-618) U/L Procalcitonin 0.19 H (0.02-0.09) ng/mL
--- NOTE | 2021-05-27 16:25 | P.PN ---
Subjective Progress Note Date: 05/27/21 Principal diagnosis: COVID-19 pneumonia 40-year-old female, who presents to the emergency department, on May 25, complaining of shortness of breath and cough. The patient has been having symptoms now for about 10 days or so. In addition, the patient had body aches, muscle aches, and even her. Her symptoms progress, and because of that, she came in to be evaluated. The patient is not vaccinated. Currently, in the emergency department, she is on 2 L nasal cannula. She's not receiving any IV fluids. Based on her symptomatology, and how long she's been sick, she is a candidate for Lovenox, Decadron, vitamin C, D3, and zinc. She is not a candidate for REM. She has a history of hypertension, hypothyroidism, epilepsy, and psoriatic arthritis. She's also had extended spectrum beta-lactamase producing E. coli urinary tract infection in the past. CBC is completely normal including white blood count, hemoglobin, hematocrit, and platelet count. D- dimer was 0.55. Sodium 132, potassium 4.1, chlorides 97, CO2 27, anion gap 8, BUN 9, and creatinine 0.72. LDH is 1652. C-reactive protein is 20.8. Pro- calcitonin level was 0.19. Chest x-ray shows diffuse bilateral pulmonary infiltrates, consistent with coronavirus pneumonia. The patient is seen today 05/27/2021 in follow-up on the regular medical floor. She is awake and alert in no acute distress. Breathing about the same today as compared to yesterday. She is maintaining O2 saturations in the 90s on 3 L/m per nasal cannula. D-dimer 0.59. LDH 580. C-reactive protein 7.40. She is continued on Decadron, Lovenox, vitamin supplements. Objective - Vital Signs Vital signs: Vital Signs Temp 98.0 F 05/27/21 14:00 Pulse 78 05/27/21 14:00 Resp 17 05/27/21 14:00 BP 112/76 05/27/21 14:00 Pulse Ox 94 L 05/27/21 16:10 Intake & Output 05/26/21 05/27/21 05/27/21 18:59 06:59 18:59 Intake Total 540 100 Balance 540 100 Intake: Oral 540 100 Other: Voiding Method Toilet Toilet # Voids 0 2 - Exam No acute distress, oriented 3. Nasal O2 in place at 3 L. HEENT examination is grossly unremarkable. Neck supple. Full range of motion. No adenopathy thyromegaly or neck vein distention. Cardiovascular examination reveals regular rhythm rate. S1-S2 normal. No S3 or S4. No discernible murmur noted. Heart sounds are distant. Heart rate 84 bpm. Lungs reveal coarse bilateral rhonchi. The patient coughs with deep in spiration. No wheezes or crackles. Breath sounds are equal bilaterally. 3 L saturation 94%. Abdomen soft bowel sounds are heard. No masses or tenderness. Extremities are intact. No cyanosis clubbing or edema. Skin is without rash or lesion. Neurologic examination is brief but nonfocal. - Labs CBC & Chem 7: 05/25/21 20:48 05/25/21 20:48 Labs: Abnormal Lab Results - Last 24 Hours (Table) 05/27/21 Range/Units 06:08 Lactate Dehydrogenase 580 H (120-246) U/L C-Reactive Protein 7.40 H (0.00-0.80) mg/dL Assessment and Plan Assessment: 1 Acute hypoxemic respiratory failure secondary to coronavirus associated pneumonia. Not vaccinated. Outside the window for Remdesivir. 2 History of hypothyroidism. 3 History of hypertension. 4 History of psoriatic arthritis. 5 Prior history of ESBL E. coli UTI. 6 History of epilepsy as a child. Plan: The patient was seen and evaluated by Dr. Brambila Remains on 3 L nasal cannula Continue Decadron, Lovenox, vitamin supplement Follow-up chest x-ray in the a.m. We will continue to follow I, the cosigning physician, performed a history & physical examination of the patient. Lungs sounds with scattered rhonchi. Maintaining good O2 saturations in the 90s on 3 L/m per nasal cannula. I discussed the assessment and plan of care with my nurse practitioner, Elza Rivers. I attest to the above note as dictated by her.
[2021-05-28] MEDS: LEVOTHYROXINE 100 MCG TAB PO SCH (05:36)
[2021-05-28] MEDS: ASCORBIC ACID 500 MG TAB PO SCH ×2 (07:30→20:14)
[2021-05-28] MEDS: ZINC SULFATE 220 MG CAP PO SCH (07:30)
[2021-05-28] MEDS: ENOXAPARIN 40 MG/0.4 ML SYRINGE SQ SCH (07:30)
[2021-05-28] MEDS: CHOLECALCIFEROL 25 MCG (1000 IU) TABLET PO SCH (07:30)
[2021-05-28] MEDS: PANTOPRAZOLE 40 MG TABLET PO SCH (07:30)
[2021-05-28] MEDS: DEXAMETHASONE SOD PHOSPHATE 10 MG/ML 1 ML VIAL IVP SCH (07:30)
[2021-05-28 15:21] LABS: Appearance,Urine Clear (Clear); Bilirubin,Urine Negative (Negative); Blood,Urine Negative (Negative); Color,Urine Light Yellow; Glucose,Urine (UA) Negative (Negative); Ketones,Urine Negative (Negative); Leukocyte Esterase,Urine Negative (Negative); Nitrite,Urine Negative (Negative); Protein,Urine Negative (Negative); Specific Gravity,Urine 1.008 (1.001-1.035); Urobilinogen,Urine <2.0 mg/dL (<2.0)
--- NOTE | 2021-05-28 15:23 | P.PN ---
Subjective Progress Note Date: 05/28/21 Principal diagnosis: COVID-19 pneumonia 40-year-old female, who presents to the emergency department, on May 25, complaining of shortness of breath and cough. The patient has been having symptoms now for about 10 days or so. In addition, the patient had body aches, muscle aches, and even her. Her symptoms progress, and because of that, she came in to be evaluated. The patient is not vaccinated. Currently, in the emergency department, she is on 2 L nasal cannula. She's not receiving any IV fluids. Based on her symptomatology, and how long she's been sick, she is a candidate for Lovenox, Decadron, vitamin C, D3, and zinc. She is not a candidate for REM. She has a history of hypertension, hypothyroidism, epilepsy, and psoriatic arthritis. She's also had extended spectrum beta-lactamase producing E. coli urinary tract infection in the past. CBC is completely normal including white blood count, hemoglobin, hematocrit, and platelet count. D- dimer was 0.55. Sodium 132, potassium 4.1, chlorides 97, CO2 27, anion gap 8, BUN 9, and creatinine 0.72. LDH is 1652. C-reactive protein is 20.8. Pro- calcitonin level was 0.19. Chest x-ray shows diffuse bilateral pulmonary infiltrates, consistent with coronavirus pneumonia. The patient is seen today 05/27/2021 in follow-up on the regular medical floor. She is awake and alert in no acute distress. Breathing about the same today as compared to yesterday. She is maintaining O2 saturations in the 90s on 3 L/m per nasal cannula. D-dimer 0.59. LDH 580. C-reactive protein 7.40. She is continued on Decadron, Lovenox, vitamin supplements. Patient is seen today 05/28/2021 in follow-up on the regular medical floor. She is currently sitting up in a chair at the bedside. Awake and alert in no acute distress. Doing a bit better today compared to yesterday. His maintaining O2 saturations in the low 90s on 3 L/m per nasal cannula. Afebrile. Hemodynamically stable. Urinalysis negative. She is continued on Lovenox, Decadron, vitamin supplements. Objective - Vital Signs Vital signs: Vital Signs Temp 97.8 F 05/28/21 13:55 Pulse 74 05/28/21 13:55 Resp 22 05/28/21 13:55 BP 111/75 05/28/21 13:55 Pulse Ox 93 L 05/28/21 13:55 Intake & Output 05/27/21 05/28/21 05/28/21 18:59 06:59 18:59 Other: Voiding Method Toilet Toilet # Voids 2 2 - Exam Very pleasant 40-year-old female patient. Up in a chair at the bedside. No acute distress, oriented 3. Nasal O2 in place at 3 L. HEENT examination is grossly unremarkable. Neck supple. Full range of motion. No adenopathy thyromegaly or neck vein distention. Cardiovascular examination reveals regular rhythm rate. S1-S2 normal. No S3 or S4. No discernible murmur noted. Heart sounds are distant. Lungs reveal coarse bilateral rhonchi. The patient coughs with deep inspi ration. No wheezes or crackles. Breath sounds are equal bilaterally. 3 L saturation 93%. Abdomen soft bowel sounds are heard. No masses or tenderness. Extremities are intact. No cyanosis clubbing or edema. Skin is without rash or lesion. Neurologic examination is brief but nonfocal. - Labs CBC & Chem 7: 05/25/21 20:48 05/25/21 20:48 Assessment and Plan Assessment: 1 Acute hypoxemic respiratory failure secondary to coronavirus associated pneumonia. Not vaccinated. Outside the window for Remdesivir. 2 History of hypothyroidism. 3 History of hypertension. 4 History of psoriatic arthritis. 5 Prior history of ESBL E. coli UTI. 6 History of epilepsy as a child. Plan: The patient was seen and evaluated by Dr. Brambila Continue the current treatment plan Follow-up chest x-ray in the a.m. We will continue to follow I, the cosigning physician, performed a history & physical examination of the patient. Lungs sounds with scattered rhonchi. Maintaining good O2 saturations in the 90s on 3 L/m per nasal cannula. I discussed the assessment and plan of care with my nurse practitioner, Elza Rivers. I attest to the above note as dictated by her.
[2021-05-28] MEDS: ALBUTEROL HFA INHALER INHALATION PRN ×2 (16:44→19:59)
[2021-05-28] MEDS ORDERED: FLUCONAZOLE 150 MG TAB PO STA (21:22)
--- NOTE | 2021-05-28 21:30 | P.PN ---
Subjective Progress Note Date: 05/28/21 HISTORY OF PRESENT ILLNESS This is a 40-year-old female patient of Dr. Branham and Dr. Mercado with past medical history of pots, psoriatic arthritis in hips and spine on Enbrel, hy pothyroidism. Patient complains of shortness of breath, fever and chills that started around May 16. She denies having any abdominal pain, diarrhea, nausea or vomiting, no blood in her stools. No lower extremities edema. She denies any headache or dizziness. Patient came into [facility] emergency center for evaluation. She was afebrile, heart rate 107, respiratory rate 26, blood pressure 97/64, pulse ox 90% on room air. CBC was unremarkable. D-dimer 0.55. Sodium 132, potassium 4.1, chloride 97, CO2 27, BUN 90 creatinine 0.72. Calcium 8.1. Total bilirubin 0.5, AST 97, ALT 57, alkaline phosphatase 69. LDH 1652. C-reactive protein 20.8. Pro-calcitonin 0.19. Chest x-ray reveals extensive bilateral pneumonia. Patient was started on dexamethasone, Lovenox and vitamin supplements, see bipolar medicine. Patient is in the emergency center waiting for bed on the [facility] floor. 05/27 patient examined bedside. Continues to have significant shortness of shelton th on rest as well as underlying. Vision endorses cough with no phlegm production. She denies any headache, dizziness, swelling in the lower extremity or palpitation. Patient continued to maintain oxygen saturation at 96% on 3 L of oxygen is afebrile pulse 76 respiratory rate 17. Labs are reviewed repeat LDH has improved from 1652-5 ED CRP is improved to 7.4 pro-calcitonin 0.19. D- dimer is normal at 0.59. Continue patient on Decadron, Lovenox, vitamin C, D and sitting. No indication for remdesivir as patient is out of window. IV fluids discontinued today Patient examined at bedside. Patient has significant SOB and noted to be lying in prone position today. patient is complaining of burning micturation associated with increase in freq. Will continue to keep spo2 > 90 % with supplemetal oxygen. patient on 3 L at this moment. Continue decadron, vit d, c and zinc. UA ordered for analysis REVIEW OF SYSTEMS Constitutional: Reports fever, Reports chills, no night sweats. No weight change. Reports weakness, Reports fatigue no lethargy. No daytime sleepiness. EENT: No headache. No blurred vision or double vision, no loss of vision. No loss of Hearing, no ringing in the ears, no dizziness. No nasal drainage or congestion. No epistaxis. No sore throat. Lungs: Reports shortness of breath, Reports cough, no sputum production. No wheezing. Cardiovascular: No chest pain, no lower extremity edema. No palpitations. No paroxysmal nocturnal dyspnea. reportsea. No lightheadedness or dizziness. No syncopal episodes. Abdominal: No abdominal pain. No nausea, vomiting. No diarrhea. No constipation. No bloody or tarry stools. No loss of appetite. Genitourinary: No dysuria, increased frequency, urgency. No urinary retention. Musculoskeletal: No myalgias. No muscle weakness, no gait dysfunction, no frequent falls. No back pain. No neck pain. Integumentary: No wounds, no lesions. No rash or pruritus. No unusual bruising. No change in hair or nails. Neurologic: No aphasia. No facial droop. No change in mentation. No head injury. No headache. No paralysis. No paresthesia. Psychiatric: No depression. No anxiety. No mood swings. Endocrine: No abnormal blood sugars. No weight change. PHYSICAL EXAMINATION Gen: This is this is a 40-year-old female. She is resting on the ears stretching appears to be comfortable, no acute respiratory distress is noted. HEENT: Head is atraumatic, normocephalic. Pupils equal, round. Sclerae is anicteric. NECK: Supple. No JVD. No lymphadenopathy. No thyromegaly. LUNGS: Coarse rhonchi bilaterally. No wheezing. No intercostal retractions. HEART: Regular rate and rhythm. No murmur. ABDOMEN: Soft. Bowel sounds are present. No masses. No tenderness. EXTREMITIES: No pedal edema. No calf tenderness. NEUROLOGICAL: Patient is awake, alert and oriented x3. Cranial nerves 2 through 12 are grossly intact. ASSESSMENT AND PLAN COVID 19 pneumonia.Continue on dexamethasone 6 mg IV push daily, Lovenox 40 mg subcu daily, vitamin supplements, albuterol inhaler 2 puffs 4 times daily as needed, Tylenol as needed for fever, pulmonary consult appreciated.Incentive spirometry. Patient recommended to change position every 2 hours and lying prone position as much as possible. Dysuria r/o UTI , UA sent History of POTS also Dr. Mercado. Psoriatic arthritis currently on Enbrel. Hold Enbrel. Hypothyroidism. Continue levothyroxine 100 g daily. Hypertension. Continue Corgard 20 mg daily with parameters. GI prophylaxis. Protonix. DVT prophylaxis. Lovenox. Objective - Vital Signs Vital signs: Vital Signs Temp 97.6 F 05/28/21 06:00 Pulse 63 05/28/21 06:00 Resp 16 05/28/21 06:00 BP 130/90 05/28/21 06:00 Pulse Ox 92 L 05/28/21 06:00 Intake & Output 05/27/21 05/28/21 05/28/21 18:59 06:59 18:59 Other: Voiding Method Toilet Toilet # Voids 2 2 - Labs CBC & Chem 7: 05/25/21 20:48 05/25/21 20:48 Labs: Abnormal Lab Results - Last 24 Hours (Table) 05/27/21 Range/Units 06:08 Lactate Dehydrogenase 580 H (120-246) U/L C-Reactive Protein 7.40 H (0.00-0.80) mg/dL
[2021-05-29] MEDS: LEVOTHYROXINE 100 MCG TAB PO SCH (05:46)
--- NOTE | 2021-05-29 08:34 | XR ---
EXAMINATION TYPE: XR chest 1V portable DATE OF EXAM: 05/29/2021 COMPARISON: Chest x-ray 05/25/2021 HISTORY: Covid pneumonia TECHNIQUE: Single frontal view of the chest is obtained. FINDINGS: Bilateral airspace disease persists. There is overlying artifact. No evident pneumothorax or pleural effusion. Lung volumes are low. Cardiac mediastinal silhouette and bones are stable. IMPRESSION: Findings consistent with patient's history. Correlate for pneumonia.
[2021-05-29] MEDS: ALBUTEROL HFA INHALER INHALATION PRN ×2 (09:11→12:20)
[2021-05-29] MEDS: PANTOPRAZOLE 40 MG TABLET PO SCH (10:18)
[2021-05-29] MEDS: ENOXAPARIN 40 MG/0.4 ML SYRINGE SQ SCH (10:18)
[2021-05-29] MEDS: ASCORBIC ACID 500 MG TAB PO SCH (10:18)
[2021-05-29] MEDS: ZINC SULFATE 220 MG CAP PO SCH (10:18)
[2021-05-29] MEDS: CHOLECALCIFEROL 25 MCG (1000 IU) TABLET PO SCH (10:18)
[2021-05-29] MEDS: DEXAMETHASONE SOD PHOSPHATE 10 MG/ML 1 ML VIAL IVP SCH (10:27)
[2021-05-29 10:37] VITALS: BP 113/77; PULSE 80; RESP 18; TEMP 97.7
--- NOTE | 2021-05-29 11:55 | P.DS ---
Providers Date of admission: 05/25/21 22:13 Attending physician: Taqueria Noriega MD Consults: 05/25/21 21:51 Consult Physician Urgent Consulting Provider: Tish Bourgeois Consult Reason/Comments: covid pneumonia Do you want consulting provider notified?: Yes Primary care physician: Sylvia Branham [facility] Course: Discharge This is a 40-year-old female patient of Dr. Branham and Dr. Mercado with past medical history of pots, psoriatic arthritis in hips and spine on Enbrel, hypothyroidism. Patient complains of shortness of breath, fever and chills that started around May 16. She denies having any abdominal pain, diarrhea, nausea or vomiting, no blood in her stools. No lower extremities edema. She denies any headache or dizziness. Patient came into [facility] emergency center for evaluation. She was afebrile, heart rate 107, respiratory rate 26, blood pressure 97/64, pulse ox 90% on room air. CBC was unremarkable. D-dimer 0.55. Sodium 132, potassium 4.1, chloride 97, CO2 27, BUN 90 creatinine 0.72. Calcium 8.1. Total bilirubin 0.5, AST 97, ALT 57, alkaline phosphatase 69. LDH 1652. C-reactive protein 20.8. Pro-calcitonin 0.19. Chest x-ray reveals extensive bilateral pneumonia. Patient was started on dexamethasone, Lovenox and vitamin supplements, see bipolar medicine. Patient is in the emergency center waiting for bed on the [facility] floor. 05/27 patient examined bedside. Continues to have significant shortness of breath on rest as well as underlying. Vision endorses cough with no phlegm production. She denies any headache, dizziness, swelling in the lower extremity or palpitation. Patient continued to maintain oxygen saturation at 96% on 3 L of oxygen is afebrile pulse 76 respiratory rate 17. Labs are reviewed repeat LDH has improved from 1652-5 ED CRP is improved to 7.4 pro-calcitonin 0.19. D- dimer is normal at 0.59. Continue patient on Decadron, Lovenox, vitamin C, D and sitting. No indication for remdesivir as patient is out of window. IV fluids discontinued today Patient examined at bedside. Patient has significant SOB and noted to be lying in prone position today. patient is complaining of burning micturation associated with increase in freq. Will continue to keep spo2 > 90 % with supplemetal oxygen. patient on 3 L at this moment. Continue decadron, vit d, c and zinc. UA ordered for analysis 05/29 patient examined bedside. Denies any shortness of breath or cough. Patient has not been wearing her oxygen in the room. Pt will be checked for walk pulse ox for oxygen needs. Will discharge patient on dexamethasone, vitamin supplement. UA was negative. Patient likely developed Jhonny infection. Fluconazole 150 mg 1 given discharge diagnoses COVID 19 pneumonia. Dysuria likley jhonny vaginitis History of POTS Psoriatic arthritis Hypothyroidism. Hypertension. More than 30 minutes was spent making discharge plan for the patient and counseling the patient Patient Condition at Discharge: Stable Plan - Discharge Summary Discharge Rx Participant: No New Discharge Prescriptions: New Ascorbic Acid [Vitamin C] 500 mg PO BID tab Fluconazole [Diflucan] 150 mg PO ONCE #1 tab Zinc Sulfate [Orazinc] 220 mg PO DAILY cap Cholecalciferol [Vitamin D3 (25 Mcg = 1000 Iu)] 75 mcg PO DAILY tablet Continue nadoloL [Corgard] 20 mg PO DAILY Levothyroxine Sodium [Euthyrox] 100 mcg PO DAILY Etanercept [Enbrel Mini] 50 mg SQ SA Naproxen 375 mg PO BID PRN PRN Reason: Pain Albuterol Inhaler [Ventolin Hfa Inhaler] 2 puff INHALATION RT-QID PRN PRN Reason: Shortness Of Breath Discharge Medication List nadoloL [Corgard] 20 mg PO DAILY 10/21/18 [History] Albuterol Inhaler [Ventolin Hfa Inhaler] 2 puff INHALATION RT-QID PRN 05/25/21 [History] Etanercept [Enbrel Mini] 50 mg SQ SA 05/25/21 [History] Levothyroxine Sodium [Euthyrox] 100 mcg PO DAILY 05/25/21 [History] Naproxen 375 mg PO BID PRN 05/25/21 [History] Ascorbic Acid [Vitamin C] 500 mg PO BID tab 05/29/21 [Rx] Cholecalciferol [Vitamin D3 (25 Mcg = 1000 Iu)] 75 mcg PO DAILY tablet 05/29/21 [Rx] Fluconazole [Diflucan] 150 mg PO ONCE #1 tab 05/29/21 [Rx] Zinc Sulfate [Orazinc] 220 mg PO DAILY cap 05/29/21 [Rx] Follow up Appointment(s)/Referral(s): Sylvia Branham DO [Primary Care Provider] - 1-2 days
== END 2021-05-29 15:16 | disposition home or self-care (01) | DRG 177 ==
LOC: EC 15:00 → 4SSUR 22:13
PROVIDERS: ADMIT Internal Medicine; ATTEND Internal Medicine
DX: U07.1 COVID-19 (principal); J12.82 Pneumonia due to coronavirus disease 2019; J96.01 Acute respiratory failure with hypoxia; L40.50 Arthropathic psoriasis, unspecified; B37.3 Candidiasis of vulva and vagina; I49.8 Other specified cardiac arrhythmias; E03.9 Hypothyroidism, unspecified; I10 Essential (primary) hypertension; I99.9 Unspecified disorder of circulatory system; Z79.890 Hormone replacement therapy; Z79.899 Other long term (current) drug therapy; Z86.19 Personal history of other infectious and parasitic diseases; Z86.69 Personal history of other diseases of the nervous system and sense organs; Z98.891 History of uterine scar from previous surgery; Z98.51 Tubal ligation status; Z88.2 Allergy status to sulfonamides; Z87.440 Personal history of urinary (tract) infections
CPT/HCPCS: 36415; 71045; 71046; 80053; 81003; 82728; 83615; 84145; 85025; 85379; 85610; 85730; 86140; 93005; 94640; 94760; 96374; 99285

== ENCOUNTER → 2022-04-13 | Outpatient (CLI) | payer OTHER ==
--- NOTE | 2022-04-13 14:00 | CT ---
EXAMINATION TYPE: CT angio chest DATE OF EXAM: 04/13/2022 COMPARISON: 12/25/2015 HISTORY: 41 year-old female shortness of breath, Dyspnea x 2 weeks, Cough x 1 week TECHNIQUE: Contiguous axial scanning of the chest performed with IV Contrast, patient injected with 1 00 ml mL of Isovue 370. Coronal/sagittal MIP reconstructions performed. CT DLP: 628 mGycm Automated exposure control for dose reduction was used. FINDINGS: Heart normal size without pericardial effusion. No flattening of the interventricular septum or reflu x of contrast into the hepatic veins. Aorta normal caliber with conventional vessel branching anatomy. Prominent bilateral hilar lymph nodes measuring up to 1.0 cm may be reactive/post inflammatory. Other mills, no thoracic lymphadenopathy seen. Satisfactory opacification of the pulmonary arterial system but with limitation due to breathing brendan on artifact. No definite pulmonary embolus. Lungs show moderate diffuse bronchial wall thickening. There is mosaic attenuation throughout. No fra nk consolidation or pleural effusion. Extensive low attenuation of the hepatic parenchyma. 1.5 cm cortical cyst upper pole left kidney. Mil d to moderate stool burden. Bones: No osseous destructive process. IMPRESSION: 1. SOME BREATHING MOTION ARTIFACT. NO PULMONARY EMBOLUS IS SEEN. 2. SCATTERED PROMINENT HILAR LYMPH NODES MEASURING UP TO 1 CM LIKELY REACTIVE. 3. DIFFUSE MOSAIC ATTENUATION AND BRONCHIAL WALL THICKENING. CORRELATE FOR BRONCHITIS/ASTHMA AND SMAL L AIRWAYS DISEASE. 4. HEPATIC STEATOSIS. CORRELATE WITH LFT's, LIPID PROFILE, AND PATIENT RISK FACTORS.
== END | disposition home or self-care (01) ==
LOC: RADCTMAIN 13:07
PROVIDERS: ATTEND Family Medicine
DX: K76.0 Fatty (change of) liver, not elsewhere classified (principal); R59.0 Localized enlarged lymph nodes
CPT/HCPCS: 71275; Q9967

== ENCOUNTER → 2022-04-16 | Outpatient (CLI) | payer OTHER ==
[2022-04-16 22:51] LABS: Basophils # (A) 0.12 X 10*3/uL (0.00-0.10); Eosinophils # (A) 0.18 X 10*3/uL (0.04-0.35); Eosinophils % (A) 1.5 %; HCT 47.7 % (37.2-46.3); HGB 15.5 g/dL (12.0-15.0); Immature Grans, Automated 0.4 %; Lymphocytes # (A) 1.22 X 10*3/uL (0.90-5.00); Lymphocytes % (A) 10.1 %; MCH 31.1 pg (27.0-32.0); MCHC 32.5 g/dL (32.0-37.0); MCV 95.8 fL (80.0-97.0); Mean Platelet Volume 10.6 fL (9.5-12.2); Monocytes # (A) 0.14 X 10*3/uL (0.20-1.00); Monocytes % (A) 1.2 %; NRBC Per 100 WBC 0 /100 WBCS (0.0-0.0); Neutrophils # (A) 10.34 X 10*3/uL (1.80-7.70); Neutrophils % (A) 85.8 %; Platelet Count 390 X 10*3/uL (140-440); RBC 4.98 X 10*6/uL (4.10-5.20); RDW 12.7 % (11.5-14.5); WBC 12.05 X 10*3/uL (4.50-10.00)
== END | disposition home or self-care (01) ==
LOC: LABWHC1 15:44
PROVIDERS: ATTEND Family Medicine
DX: U07.1 COVID-19 (principal); Z86.16 Personal history of COVID-19
CPT/HCPCS: 36415; 85025; 86769

== ENCOUNTER → 2022-06-07 | Outpatient (CLI) | payer OTHER ==
--- NOTE | 2022-06-07 09:12 | CT ---
EXAMINATION TYPE: CT chest wo con CT DLP: 644 mGycm, Automated exposure control for dose reduction was used. DATE OF EXAM: 06/07/2022 8:12 AM COMPARISON: Multiple CTs of the chest with most recent on 04/13/2022 CLINICAL INDICATION:Female, 41 years old with history of R06.00 Dyspnea. TECHNIQUE: Multiple axial images were obtained through the chest. Sagittal and coronal reformats were created for review. Contrast used: none. Oral contrast used: none. FINDINGS: LUNGS/ PLEURA: The lung parenchyma appears unremarkable. No focal consolidation, pneumothorax or ple ural fusion. No evidence of honeycombing. No bronchiectasis. AIRWAY: Patent and unremarkable. HEART: Size within normal limits. MEDIASTINUM: No gross evidence of adenopathy. VASCULATURE: No aortic aneurysm. MUSCULOSKELETAL: No acute osseous abnormalities SOFT TISSUES/LYMPH NODES: Unremarkable. LOWER NECK: No significant findings. UPPER ABDOMEN: No significant findings. IMPRESSION: No evidence for acute process. No evidence of interstitial lung disease or pulmonary fibrosis.
[2022-06-07 15:23] LABS: Basophils # (A) 0.15 X 10*3/uL (0.00-0.10); Basophils % (A) 1.6 %; Eosinophils # (A) 0.89 X 10*3/uL (0.04-0.35); Eosinophils % (A) 9.4 %; HGB 14.5 g/dL (12.0-15.0); Immature Grans, Automated 0.3 %; Lymphocytes # (A) 3.67 X 10*3/uL (0.90-5.00); Lymphocytes % (A) 38.9 %; MCH 31.6 pg (27.0-32.0); MCHC 32.2 g/dL (32.0-37.0); Mean Platelet Volume 10.7 fL (9.5-12.2); Monocytes # (A) 0.77 X 10*3/uL (0.20-1.00); Monocytes % (A) 8.2 %; NRBC Per 100 WBC 0 /100 WBCS (0.0-0.0); Neutrophils # (A) 3.93 X 10*3/uL (1.80-7.70); Neutrophils % (A) 41.6 %; Platelet Count 333 X 10*3/uL (140-440); RBC 4.59 X 10*6/uL (4.10-5.20); RDW 12.5 % (11.5-14.5); WBC 9.44 X 10*3/uL (4.50-10.00)
== END | disposition home or self-care (01) ==
LOC: RADCTMAIN 07:52
PROVIDERS: ATTEND Family Medicine
DX: R06.00 Dyspnea, unspecified (principal); D72.829 Elevated white blood cell count, unspecified
CPT/HCPCS: 71250; 85025

== ENCOUNTER → 2023-04-07 | Outpatient (CLI) | payer OTHER | END | disposition home or self-care (01) | LOC: RADUSWWP 09:00 | DX: Z53.9 Procedure and treatment not carried out, unspecified reason (principal) ==

== ENCOUNTER → 2023-04-07 | Outpatient (CLI) | payer OTHER ==
--- NOTE | 2023-04-07 15:24 | US ---
EXAMINATION TYPE: US st tissue neck DATE OF EXAM: 04/07/2023 COMPARISON: NONE CLINICAL INDICATION: Female, 42 years old with history of R59.0 ENLARGED NYMPH NODES; palpable felt o n the right side of neck for two months, tender to touch, no change in size, no recent illness TECHNIQUE: Soft tissue neck scan FINDINGS: Patternmaker Pressure Cast notes: At area of right sided palpable, just adjacent to submandibular gland, there is a lymph node measuring 1.9 x 1.6 x 1.0cm, small fatty hilum. IMPRESSION: Mildly enlarged lymph node at the patient's right neck palpable site measuring up to 1.6 cm short axi s. Probably reactive/post inflammatory. Reassess in 3 months to ensure stability/resolution.
== END | disposition home or self-care (01) ==
LOC: RADUSWWP 07:41
PROVIDERS: ATTEND Family Medicine
DX: R59.0 Localized enlarged lymph nodes (principal); R92.8 Other abnormal and inconclusive findings on diagnostic imaging of breast
CPT/HCPCS: 76536; 77062; 77066

== ENCOUNTER → 2023-04-26 | Outpatient (CLI) | payer OTHER | END | disposition home or self-care (01) | LOC: LABWHC1 11:01 | PROVIDERS: ATTEND Family Medicine | DX: E03.9 Hypothyroidism, unspecified (principal) | CPT/HCPCS: 36415; 84443 ==

== ENCOUNTER → 2023-06-16 | Outpatient (CLI) | payer OTHER ==
--- NOTE | 2023-06-16 08:46 | CT ---
EXAMINATION TYPE: CT soft tissue neck w con CT DLP: 514.4 mGycm, Automated exposure control for dose reduction was used. DATE OF EXAM: 06/16/2023 8:26 AM COMPARISON: None. CLINICAL INDICATION:Female, 42 years old with history of R60.0 swelling R parotid gland, swelling to rt side of neck TECHNIQUE: Standard enhanced CT of the neck. Axial sections with coronal and sagittal reformats were obtained. Metallic BBs placed at the Contrast used:100 mL of Isovue 300 with IV Contrast. Oral contrast used: (None if empty) FINDINGS: Brain: Visualized portions are grossly unremarkable. Orbits: Unremarkable Sinuses: Grossly unremarkable. Spaces of the neck: Clear and symmetric. Musculoskeletal: No acute osseous pathology. Lymph nodes: Multiple nonenlarged lymph nodes are seen along both anterior chains of the neck. Vascular structures: Visualized major arteries are patent without evidence of aneurysm. Thoracic Inlet/airway: Airway is patent. The lung apices are clear. Soft tissues/Thyroid: Thyroid and remainder of the soft tissues are unremarkable. Other: none. IMPRESSION 1. No evidence of masslike abnormality involving the right parotid gland. Nothing correlates with 2 m etallic BBs in the right neck. No definite evidence for abscess or significant abnormality.
[2023-06-16 10:17] LABS: T4, Free (Free Thyroxine) 1.12 ng/dL (0.78-2.19)
== END | disposition home or self-care (01) ==
LOC: RADCTMAIN 07:12
PROVIDERS: ATTEND Otolaryngology
DX: R60.0 Localized edema (principal); R59.0 Localized enlarged lymph nodes
CPT/HCPCS: 84439; 84443; 70491; 36415; Q9967

== ENCOUNTER → 2023-09-08 | Outpatient (CLI) | payer OTHER ==
[2023-09-08 20:26] LABS: Follicle Stimulating Hormone 6.9 mIU/mL
== END | disposition home or self-care (01) ==
LOC: LABWHC1 10:39
PROVIDERS: ATTEND Family Medicine
DX: N95.0 Postmenopausal bleeding (principal)
CPT/HCPCS: 36415; 83001; 83002

== ENCOUNTER → 2023-09-09 | Outpatient (CLI) | payer OTHER ==
--- NOTE | 2023-09-09 15:06 | CT ---
EXAMINATION: CT ABDOMEN AND PELVIS WITH IV CONTRAST DATE OF EXAMINATION: 09/09/2023. COMPARISON: 11/24/2012. INDICATION: Left-sided abdominal pain. PROCEDURE: Axial CT of the abdomen and pelvis was performed with contrast and sagittal and coronal reformatted images were performed. CT dose lowering techniques were used, to include: automated expos ure control, adjustment for patient size, and/or use of iterative reconstruction. FINDINGS: LOWER CHEST : The visualized lung bases are clear. There are no pleural or pericardial effusions. ABDOMEN: Liver and Biliary system: There is mild diffuse decreased attenuation of liver compatible fatty live r infiltration. No focal liver lesions are otherwise seen. Adrenal glands: Normal. Kidneys and ureters: There is a 2.2 cm cyst in the upper pole of the left kidney. Spleen: Normal. Pancreas: Normal. Gallbladder: Normal. Lymph nodes, Peritoneum and mesentery: There is no mesenteric or retroperitoneal lymphadenopathy. Gastrointestinal tract: There are no dilated loops of bowel or free intraperitoneal air. The appe ndix is normal. Aorta/IVC: No aortic aneurysm. IVC normal. Abdominal wall: Normal. PELVIS: Fluid: There is no free fluid in the pelvis. Lymph Nodes: There is no pelvic or inguinal lymphadenopathy.. Urinary bladder: Normal. BONES: There are no osseous destructive lesions.. ADDITIONAL SIGNIFICANT FINDINGS: Multiple bilateral ovarian cystic structures and follicles.. IMPRESSION: 1. No acute process within the abdomen or pelvis. 2. Multiple bilateral ovarian cysts and follicles. Cysts were noted to be present on the ultrasound e xamination of 09/01/2023. A follow-up in 6-8 weeks is recommended with ultrasound.
== END | disposition home or self-care (01) ==
LOC: RADCTMAIN 06:24
PROVIDERS: ATTEND Family Medicine
DX: N83.292 Other ovarian cyst, left side (principal); N83.291 Other ovarian cyst, right side
CPT/HCPCS: 74177; Q9967

== ENCOUNTER → 2023-09-28 | Outpatient (CLI) | payer OTHER ==
[2023-09-28 16:17] LABS: Basophils # (A) 0.12 X 10*3/uL (0.00-0.10); Basophils % (A) 1.4 %; Eosinophils # (A) 0.93 X 10*3/uL (0.04-0.35); Eosinophils % (A) 11.1 %; HCT 44.7 % (37.2-46.3); HGB 14.9 g/dL (12.0-15.0); Lymphocytes # (A) 2.55 X 10*3/uL (0.90-5.00); Lymphocytes % (A) 30.4 %; MCHC 33.3 g/dL (32.0-37.0); MCV 92.9 FL (80.0-97.0); Mean Platelet Volume 10.2 FL (9.5-12.2); Monocytes # (A) 0.65 X 10*3/uL (0.20-1.00); Monocytes % (A) 7.7 %; NRBC Per 100 WBC 0 X 10*3/uL (0.00-0.01); Neutrophils # (A) 4.14 X 10*3/uL (1.80-7.70); Neutrophils % (A) 49.3 %; Platelet Count 321 X 10*3/uL (140-440); RBC 4.81 X 10*6/uL (4.10-5.20); RDW 12.5 % (11.5-14.5)
[2023-09-28 16:47] LABS: ALT 26 U/L (8-44); AST 28 U/L (13-35); Albumin 4.1 g/dL (3.8-4.9); Albumin/Globulin Ratio 1.46 Ratio (1.60-3.17); Alkaline Phosphatase 75 U/L (41-126); BUN/Creat Ratio 15.67 Ratio (12.00-20.00); Blood Urea Nitrogen 14.1 mg/dL (9.0-27.0); Calcium 9.4 mg/dL (8.7-10.3); Carbon Dioxide 24.8 mmol/L (21.6-31.8); Chloride 105 mmol/L (96-109); Globulin 2.8 g/dL (1.6-3.3); Glucose 100 mg/dL (70-110); Sodium 140 mmol/L (135-145); Total Bilirubin 0.5 mg/dL (0.3-1.2); Total Protein 6.9 g/dL (6.2-8.2)
== END | disposition home or self-care (01) ==
LOC: LABWHC1 12:47
PROVIDERS: ATTEND Family Medicine
DX: N95.0 Postmenopausal bleeding (principal)
CPT/HCPCS: 36415; 80053; 84146; 85025

== ENCOUNTER → 2024-04-25 | Outpatient (CLI) | payer OTHER ==
--- NOTE | 2024-04-26 17:30 | MM ---
Reason for Exam: Screening (asymptomatic). Last screening mammogram was performed 12 month(s) ago. Patient History: Menarche at age 9. First Full-Term at age 18. Hysterectomy at age 40. Patient has history of breast feeding. Patient used Hormonal Contraceptives for 11 years. Maternal aunt had breast cancer. Risk Values: Becky 5 year model risk: 0.6%. NCI Lifetime model risk: 7.8%. Prior Study Comparison: 10/28/2021 Right Diagnostic Mammogram, [facility]. 04/29/2022 Right Diagnostic Mammogram, [facility]. 04/07/2023 Bilateral MG 3D diag mammo w/cad [facility], [facility]. Tissue Density: The breasts are heterogeneously dense, which may obscure small masses. Findings: Analyzed By CAD. There is no suspicious group of microcalcifications or new suspicious mass in either breast. Overall Assessment: Negative, BI-RAD 1 Management: Screening Mammogram of both breasts in 1 year. . Patient should continue monthly self-breast exams. A clinical breast exam by your physician is recommended on an annual basis. This exam should not preclude additional follow-up of suspicious palpable abnormalities. Note on Becky scores and lifetime risk: 1. A Becky score greater than 3% is considered moderate risk. If this is the case, consider specialist referral to assess eligibility for a risk reducing agent. 2. If overall lifetime risk for the development of breast cancer is 20% or higher, the patient may qualify for future screening with alternating mammogram and breast MRI. [facility], , 04/26/2024 5:27 PM. Electronically signed and approved by: Ricardo Majano M.D. Radiologist
== END | disposition home or self-care (01) ==
LOC: RADMAMWWP 07:40
PROVIDERS: ATTEND Family Medicine
CPT/HCPCS: 77063; 77067

== ENCOUNTER → 2024-05-30 | Outpatient (CLI) | payer OTHER ==
--- NOTE | 2024-05-31 08:29 | US ---
EXAMINATION TYPE: US abdomen complete DATE OF EXAM: 05/30/2024 COMPARISON: CT: 09/09/23 CLINICAL INDICATION: Female, 43 years old with history of R109 ABD PAIN; ABD pain x 1 year. Pt states she thinks it is her "colon" TECHNIQUE: Grayscale and color Doppler imaging of the abdomen was performed. FINDINGS: EXAM MEASUREMENTS: Liver Length: 14.2 cm Gallbladder Wall: 0.25 cm CBD: 0.46 cm, color Doppler imaging was utilized to isolate the common bile duct for measurement. Spleen: 10.7 cm Right Kidney: 10.3 x 5.3 x 4.4 cm Left Kidney: 10.7 x 5.2 x 4.8 cm TIRE FABRICATOR NOTES: Pancreas: parts seen appear wnl Liver: heterogeneous Gallbladder: wnl Evidence for sonographic Hancock's sign: No CBD: wnl Spleen: wnl Right Kidney: wnl Left Kidney: Hypoechoic area seen in sup pole measuring 2.1 x 1.5 x 1.7cm Upper IVC: slightly limited due to bowel gas Abd Aorta: slightly limited due to bowel gas Areas imaged midline in area of concern, no obvious abnormality visualized The liver is homogenous. The intrahepatic portion of the IVC and proximal abdominal aorta are within normal limits. There is no evidence of cholelithiasis. Common bile duct is unremarkable. The visu alized portions of the pancreas are homogenous. The spleen is unremarkable. Kidneys are symmetric a nd free of hydronephrosis. No solid renal lesions are seen. IMPRESSION: Simple cyst left kidney. [facility], , 05/31/2024 8:26 AM
== END | disposition home or self-care (01) ==
LOC: RADUSWWP 08:43
PROVIDERS: ATTEND Family Medicine
DX: N28.1 Cyst of kidney, acquired (principal)
CPT/HCPCS: 76700

== ENCOUNTER 2024-08-21 06:27 | Day surgery (SDC) | payer OTHER ==
[~2024-08-21 06:27] MED LIST: LIDOCAINE 1% (10MG/ML) FOR IV START INTRADERMA PRN
[2024-08-21 07:10] VITALS: RESP 16; TEMP 97.2
[2024-08-21] MEDS: LACTATED RINGERS 1,000 ML IV SCH (07:15)
[2024-08-21] MEDS ORDERED: LIDOCAINE 1% INJ 10MG/ML (20 ML MDV) ONE (07:27)
[2024-08-21] MEDS ORDERED: PROPOFOL 10 MG/ML 20 ML VIAL IV ONE (07:27)
--- NOTE | 2024-08-21 07:44 | P.PCN ---
Date of Procedure: 08/21/24 Procedure(s) Performed: Brief history: Patient is a pleasant 44-year-old white female scheduled for an elective upper endoscopy as well as colonoscopy as a part of evaluation of left upper quadrant abdominal pain and change in bowel habits for the last several years duration Procedure performed: Esophagogastroduodenoscopy with biopsy Colonoscopy Preoperative diagnosis: Left upper quadrant abdominal pain Change in bowel habits Anesthesia: MAC Procedure: After informed consent was obtained from the patient was brought into the endoscopy unit and IV sedation was administered by anesthesia under continuous monitoring. Initially upper endoscopy was done. The Olympus GF 160 video endoscope was inserted inserted into the mouth and esophagus intubated without any difficulty and was gradually advanced into the stomach and duodenum and carefully examined. The bulb and second part of the duodenum appeared normal. The scope was then withdrawn into the stomach adequately insufflated with air and upon careful examination the antrum had mild gastritis and biopsies were done from this area. Mucosa of the body, cardia and fundus appeared normal. The scope was then withdrawn into the esophagus. The GE junction was located at 40 cm to the incisors. It appeared regular with no erythema erosions or ulcerations. Rest of the esophagus appeared normal. Biopsies were done from the distal esophagus. Patient tolerated the procedure well. At this time the patient continued to remain sedation. Initial digital rectal examination was normal. Olympus CF 160 video colonoscope was then inserted into the rectum and gradually advanced to the cecum without any difficulty. Careful examination was performed as the scope was gradually being withdrawn. The prep was excellent. The cecum, ascending colon, transverse colon, descending colon, sigmoid colon and rectum appeared normal. Katter sigmoid diverticulosis. Retroflexion was performed in the rectum and no lesions were noted. Patient tolerated the procedure well. Impression: 1. Upper endoscopy revealed mild antral gastritis but no esophagitis or peptic ulcer disease 2. Colonoscopy was within normal limits with no evidence of colorectal neoplasia except scattered sigmoid diverticulosis Recommendations: Findings of this examination were discussed with the patient as well as her family. She was advised to follow-up with the biopsy results. Continue with MiraLAX daily and regulate bowel movements. Recommended repeat screening colonoscopy in 10 years. Follow-up in the office in 2 weeks
[2024-08-21 08:08] VITALS: BP 130/87; PULSE 84
== END 2024-08-21 08:23 | disposition home or self-care (01) ==
LOC: ORWHC2ENDO 06:27
PROVIDERS: ATTEND Internal Medicine Gastroenterology
DX: K29.50 Unspecified chronic gastritis without bleeding (principal); K57.30 Diverticulosis of large intestine without perforation or abscess without bleeding; K21.9 Gastro-esophageal reflux disease without esophagitis; J45.909 Unspecified asthma, uncomplicated; E07.9 Disorder of thyroid, unspecified; L40.50 Arthropathic psoriasis, unspecified; G90.A Postural orthostatic tachycardia syndrome [POTS]; Z90.710 Acquired absence of both cervix and uterus; Z88.1 Allergy status to other antibiotic agents; Z79.51 Long term (current) use of inhaled steroids; Z79.899 Other long term (current) drug therapy
CPT/HCPCS: 88305; 45378; 43239; J2003; J2704

== ENCOUNTER → 2024-10-25 | Outpatient (CLI) | payer OTHER | END | disposition home or self-care (01) | LOC: LABWHC1 13:26 | PROVIDERS: ATTEND Nurse Practitioner Family | DX: N39.0 Urinary tract infection, site not specified (principal) | CPT/HCPCS: 87086 ==